=== PATIENT | female | born 1965 | race Caucasian/White ===

== ENCOUNTER 2019-01-31 11:31 | Outpatient (CLI) | payer BC, SELFPAY ==
[2019-01-31 13:39] LABS: TSH (W/Ref FT4) 1.89 uIU/mL (0.358-3.74)
== END 2019-01-31 11:51 ==
PROVIDERS: PCP Neuromusculoskeletal Medicine & OMM; Visit Provider Nurse Practitioner Family
DX: R10.2 Pelvic and perineal pain (principal); N95.0 Postmenopausal bleeding
CPT/HCPCS: 36415; 84443; 87086

== ENCOUNTER 2019-02-14 00:17 | Outpatient (CLI) | payer BC, SELFPAY ==
--- NOTE | 2019-02-14 09:26 | DI.US_ITS ---
SYMPTOMS/DIAGNOSIS: POSTMENOPAUSAL BLEEDING, N95.0 PELVIC ULTRASOUND: Comparison is made with January,. The uterus measures 5.5 x 2.8 x 3.5 cm. No fibroids are seen. The endometrial stripe measures 2 mm in thickness. There is vascular prominence around the uterus and ovaries, which could indicate pelvic congestion syndrome. No ovarian cysts or masses are identified. There is no evidence of free fluid or hydronephrosis. The urinary bladder is unremarkable. IMPRESSION: Prominent pelvic vasculature could indicate pelvic congestion syndrome. The uterus and ovaries are unremarkable.
--- NOTE | 2019-02-14 09:42 | DI.MAMMO_ITS ---
SYMPTOM/DIAGNOSIS: SCREENING, Z12.31 MAMMOGRAMS: Mammograms were interpreted according to the usual protocol including computer analysis with CAD system, tomosynthesis and C view imaging. Comparison is made with exams from [id number]. The breasts are composed of scattered fibroglandular densities, breast density, Category B. No suspicious masses or suspicious microcalcifications are seen. There has been no significant change. IMPRESSION: Category 1, negative mammogram. Yearly screening mammography is recommended. [facility] ASSESSMENT OF FINDINGS: Negative. Category 1. Patient will receive a letter notifying them of these results. BI-RADS category B. There are scattered areas of fibroglandular density.
== END 2019-02-14 00:37 ==
PROVIDERS: PCP Neuromusculoskeletal Medicine & OMM; Visit Provider Nurse Practitioner Family
DX: N95.0 Postmenopausal bleeding (principal); Z12.31 Encounter for screening mammogram for malignant neoplasm of breast
CPT/HCPCS: 77063; 77067; 76830; 76856

== ENCOUNTER 2019-03-13 11:55 | Outpatient (REF) | payer BC, SELFPAY ==
--- NOTE | 2019-03-13 09:30 | ENDOMET_PTH ---
PATIENT: Ha Molina LOC: N U#:[id number] AGE/SX: 53/F ROOM: RE03/13/[address]: ePtey Gutierrez MD : 1965 BED: DIS: 03/13/2019 SPEC #: [id number] RECD: 03/13/19 12:58 STATUS: RONEN REQ #: [id number] CECILE: 03/13/19 09:[address]: Petey Gutierrez DEPT: Surgical Specimen RECD BY: Haily Bhakta ENTERED: 03/13/19 12:58 SP TYPE: Endomet OTHR DR: Jose Rahman Tissues: 1 - ENDOMETRIUM BX/YUSEFETTE Procedures: GROSS AND MICRO LEVEL 4 Comments: [id number]
== END 2019-03-13 12:15 ==
LOC: LBN 11:55
PROVIDERS: PCP Neuromusculoskeletal Medicine & OMM; Visit Provider Obstetrics & Gynecology
DX: N93.8 Other specified abnormal uterine and vaginal bleeding (principal); N85.01 Benign endometrial hyperplasia
CPT/HCPCS: 88305

== ENCOUNTER 2020-02-08 10:56 | Outpatient (REF) | payer BC, SELFPAY ==
--- NOTE | 2020-02-08 10:45 | PAPFT_PTH ---
PATIENT: Ha Molina LOC: [facility] U#:[id number] AGE/SX: 54/F ROOM: RE02/08/[address]: ITALO Andrea : 1965 BED: DIS: 02/08/2020 SPEC #: [id number] RECD: 02/08/20 12:55 STATUS: ENT REQ #: [id number] CECILE: 02/08/20 10:[address]: Karo Manley DEPT: [facility] Cytology RECD BY: Cirilo Noguera ENTERED: 02/08/20 12:55 SP TYPE: PAPFT OTHR DR: Yuliya Gallardo APRN Tissues: 1 - CX/ENDOCX FOR PAP SMEARS Procedures: PAP THIN PREP/UVM Screening HPV DNA PROBE Comments: [id number]
== END 2020-02-08 11:16 ==
LOC: LBN 10:56
PROVIDERS: Visit Provider Nurse Practitioner Family
DX: R82.90 Unspecified abnormal findings in urine (principal); Z12.4 Encounter for screening for malignant neoplasm of cervix; Z11.51 Encounter for screening for human papillomavirus (HPV)
CPT/HCPCS: 88142; 87086; 87624

== ENCOUNTER 2020-09-26 00:30 | Outpatient (CLI) | payer BC, SELFPAY ==
--- NOTE | 2020-09-26 | DI.MAMMO_ITS ---
EXAM: MG MAMMO SCREENING CLINICAL HISTORY: SCREENING,Z12.39 TECHNIQUE: Bilateral full field digital CC and MLO mammographic images were obtained with 3D tomosyn thesis and utilizing computer aided detection (CAD). COMPARISON: Available for comparison. FINDINGS: Masses/Architectural Distortion: None seen. Microcalcifications: No suspicious pleomorphic-type are seen. Skin Thickening/Nipple Retraction: None. IMPRESSION: 1. No significant interval change with no specific features of malignancy noted. 2. Unless there is more urgent need, screening mammography is recommended, as per [employer] guidelines. BI-RADS Category 1 - Negative Breast Density - Category B - Scattered areas of fibroglandular density Breast density category C or D implies that the patient has dense breast tissue. Dense breast tissue is very common and is not abnormal but dense breast tissue can make it harder to find cancer on a ma mmogram. Also, dense breast tissue may increase their breast cancer risk. This information about the result of the mammogram report was provided to the patient to raise their awareness. Use this report when you speak with the patient about their risks for breast cancer, which includes their family hist ory. At that time, you may recommend for more screening tests (Ultrasound or MRI) as they might be us eful based on their risk. A negative radiographic report should not delay biopsy if a dominant or clinically suspicious mass is present. Up to ten percent of cancers are not identified on mammography. A negative report may reinforce clinical impression. Adenosis and dense breasts may obscure an underlying neoplasm. False positive reports average 6 to 10%. Patient will receive a letter notifying them of these results.
--- OUTSIDE RECORDS SUMMARY | 2020-09-26 00:32 | XMS_ITS ---
:1965 Author Care Team Providers Name Role Phone Navigator A Primary Care Provider Unavailable Allergies None recorded. Medications Name Status Start Date Stop Date ? ? magnesium gluconate 12.5 mg magnesium (250 mg) tablet Completed 02/19/2015 05/20/2015 4 Tablet: Daily Problems Name Status Onset Date Source ? Adenomatous Polyp of Colon Active ? Histo ry Allergic Rhinitis Active ? History Osteoporosis Active ? History Bone Density Finding Active ? History Cough Active ? History Abdominal Bloating Active ? History Hemorrhage of Rectum and Anus Active ? Hi story Procedure by Method Active ? History Inflammatory Dermatosis Active ? History Procedures None recorded. Results Lab Results None recorded. Past Encounters 07/05/2019 Administration of Influenza Vaccine Jose Rahman, DO: [address] [place] [address], Ph. Social History None recorded. Vaccine List Vaccine Type influenza, injectable, quadrivalent, pre servative free 07/05/2019 Tdap 12/31/2005 Plan of Care Reminders Provider Appointments None ? ? recorded. Lab None ? ? recorded. Referral None ? ? recorded. Procedures None ? ? recorded. Surgeries None ? ? recorded. Imaging None ? ? recorded. Vitals 01/06/2016 Weight Blood Pressure 68.95 kg 110/64 mm[Hg] 02/07/2014 Height Weight Blood Pressure 160.02 cm 58.06 kg 112/62 mm[Hg]
== END 2020-09-26 00:50 ==
PROVIDERS: Visit Provider Nurse Practitioner Family
DX: Z12.31 Encounter for screening mammogram for malignant neoplasm of breast (principal)
CPT/HCPCS: 77063; 77067

== ENCOUNTER 2022-02-09 00:33 | Outpatient (CLI) | payer OTHER, SELFPAY ==
--- NOTE | 2022-02-09 08:30 | DI.MAMMO_ITS ---
Exam(s) MAMMO SCREENING EXAM: MAMMO SCREENING CLINICAL HISTORY: screening TECHNIQUE: Mammograms were interpreted according to the usual protocol including computer analysis w [employer] CAD system, tomosynthesis and C-view imaging. COMPARISON: No exams were available for comparison FINDINGS: The breasts are composed of scattered fibroglandular densities, Breast Density category B. No suspicious masses or suspicious microcalcifications are seen. No skin thickening or abnormal axillary lymph nodes are seen. There has been no significant change from prior exams. IMPRESSION: BI-RADS Category 1, Negative mammogram Yearly screening mammography is recommended. Breast Density - Category B, scattered fibroglandular densities. A negative radiographic report should not delay biopsy if a dominant or clinically suspicious mass is present. Up to ten percent of cancers are not identified on mammography. A negative report may reinforce clinical impression. Adenosis and dense breasts may obscure an underlying neoplasm. False positive reports average 6 to 10%. Patient will receive a letter notifying them of these results.
== END 2022-02-09 00:53 ==
PROVIDERS: Visit Provider Nurse Practitioner Family
DX: Z12.31 Encounter for screening mammogram for malignant neoplasm of breast (principal)
CPT/HCPCS: 77063; 77067

== ENCOUNTER 2022-08-10 02:45 | Outpatient (CLI) | payer OTHER, SELFPAY ==
[2022-08-10 09:38] LABS: ALT 16 U/L (14-59); AST 19 U/L (15-37); Alkaline Phosphatase 62 U/L (46-116); Anion Gap 7.1 mmol/L (3-11); BUN 12 mg/dL (7-18); Bilirubin, Total 0.3 mg/dL (0.2-1.0); CO2 30.9 mmol/L (21.0-32.0); CREATININE 0.7 mg/dL (0.55-1.02); Calcium 9.6 mg/dL (8.5-10.1); Chloride 104 mmol/L (98-107); Estimated GFR 100.19 (mL/min/1.73m2); Glucose 86 mg/dL (74-106); Potassium 3.8 mmol/L (3.5-5.1); Sodium 142 mmol/L (136-145); Total Protein 7.5 g/dL (6.4-8.2)
== END 2022-08-10 02:46 | disposition home or self-care (01) ==
LOC: LBO 02:47
PROVIDERS: PCP Nurse Practitioner Family; Visit Provider Nurse Practitioner Family
DX: Z00.00 Encounter for general adult medical examination without abnormal findings (principal)
CPT/HCPCS: 36415; 80053

== ENCOUNTER 2022-12-10 14:36 | Emergency (ER) | payer MEDICAID, SELFPAY ==
--- NOTE | 2022-12-10 14:30 | RT.EKG_ITS ---
APPROVED REPORT Exam: Resting ECG Reason for Exam: palpitations Patient Location: E HR:66 bpm ECG Measurements Heart Rate 66 AXIS AZ 154 P 50 QRSd 81 QRS 57 QT 389 T 28 QTc 406 Conclusion Sinus rhythm...normal P axis, V-rate 60- 99 Atrial premature complex...SV complex w/ short R-R interval Consider left ventricular hypertrophy...(S V1+R V5/V6) >3.25mV
[2022-12-10 14:54] VITALS: BP 140/78; PULSE 71; RESP 18; TEMP 36.8; O2SAT 98
--- NOTE | 2022-12-10 15:35 | W.ED.GENAD ---
Discharge Plan Disposition Patient Disposition: Home Condition: Stable Discharge Details Clinical Impression: Palpitations Primary Care Provider: Gold Hernandez ED Provider: Tom Alvarez Home Meds and New Rx's Prescriptions: New metoprolol tartrate 25 mg tablet 25 mg PO DAILY Qty: 30 0RF Continued Rosendo-E 400 mg tablet 400 mg PO DAILY Rx Instructions: administer on an empty stomach CBD Gummie 20 mg PO clobetasol 0.05 % ointment 1 applic topical DAILY 14 Days Qty: 30 1RF Rx Instructions: after two weeks apply tiny amount to vulva twice weekly. cephalexin 500 mg capsule 500 mg PO TID Qty: 15 0RF cholecalciferol (vitamin D3) 125 mcg (5,000 unit) tablet 5,000 unit PO DAILY magnesium 250 mg tablet 250 mg PO DAILY Adult 50 Plus Probiotic 4 billion cell capsule 4,000 mmu cells PO DAILY Rx Instructions: administer with a meal calcium carbonate 600 MG tablet 1,200 mg PO DAILY estradiol 0.01 % (0.1 mg/gram) cream See Rx Instructions .ROUTE .COMPLEX Qty: 42.5 4RF Dose Instruction: USE 1 GRAM VAGINALLY DAILY FOR TWO WEEKS THEN TWICE WEEKLY Rx Instructions: USE 1 GRAM VAGINALLY DAILY FOR TWO WEEKS THEN TWICE WEEKLY Discharge Instructions Instructions: Heart Palpitations (ED) Additional Instructions: your labs did not show concerning findings at this time follow up with your primary care provider within 1 week if you feel more ill, have severe wosening pain or difficulty breathing return to the emergency department Medical Decision Making 57 yo female with no prior cardiac history and no history of smoking comes in with cc of feeling heart beating irregularly since Wednesday. She denies chest pain/pressure, fevers, chills, dyspnea. She states she has had symptoms like this in the past but has attributed it to stress in the past. She arrives hemodynamically stable speaking clearly in no distress. She has clear lungs, no jvd, no leg swelling or tenderness. EKG with pac's otherwise no ischemic findings. Will obtain troponin and is wells low, will send d dimer, no tearing back pain and normal peripheral pulses so doubt dissection. pt stable, labs unremarkable. no concerning tele arrythmias. She does state she used to take metoprolol which she feels helped her symptoms. I discussed with her risks/benefits and she would prefer to have a prescription until she sees her pcp. She is stable for discharge, return precautions given Differential Diagnosis Differential Diagnosis: pac's, nstemi, pe Medical Records Medical records reviewed: Yes I reviewed the patient's medical records. Lab Data Lab results reviewed: Yes I reviewed the patient's lab results. ECG Data Attestation: I personally reviewed and interpreted this ECG (s) as follows: Prior ECG tracings: available for review Interpretation: sinus rhythm, rate of 66, no stemi, pac's HPI General Mode of arrival: ambulatory. Date/Time Provider Initiated Documentation: 12/10/22 14:57. Limitations to Documentation: no limitations. Information obtained by: patient. History of Present Illness 57 year old F presents to the emergency department with the chief complaint of palpitations, described as moderate, and it has been constant. No relieving factors improve symptom(s), No exacerbating factors reported . Patient notes no other symptoms.; denies fever/chills and shortness of breath. Patient did receive the following treatments prior to arrival, none Related Data Home Medications Medication Instructions Recorded Confirmed calcium carbonate 600 mg calcium 1,200 mg PO DAILY 11/20/14 12/10/22 (1,500 mg) tablet cholecalciferol (vitamin D3) 125 5,000 unit PO DAILY 12/17/19 12/10/22 mcg (5,000 unit) tablet lactobacillus combination no.9 4 4,000 mmu cells PO DAILY 09/02/20 12/10/22 billion cell capsule (Adult 50 Plus Probiotic) magnesium 250 mg tablet 250 mg PO DAILY 09/02/20 12/10/22 s-adenosylmethionine 400 mg tablet 400 mg PO DAILY 07/29/21 12/10/22 (Rosendo-E) CBD Gummie 20 mg PO 07/30/21 10/17/22 estradiol 0.01% (0.1 mg/gram) See Rx Instructions .Route 07/31/22 10/17/22 vaginal cream .COMPLEX #42.5 grams cephalexin 500 mg capsule 500 mg PO TID #15 caps 10/07/22 10/17/22 clobetasol 0.05 % topical ointment 1 applic topical DAILY 2 weeks #30 10/07/22 10/17/22 grams metoprolol tartrate 25 mg tablet 25 mg PO DAILY #30 tabs 12/10/22 Previous Rx's Medication Instructions Recorded estradiol 0.01% (0.1 mg/gram) See Rx Instructions .Route 07/31/22 vaginal cream .COMPLEX #42.5 grams cephalexin 500 mg capsule 500 mg PO TID #15 caps 10/07/22 clobetasol 0.05 % topical ointment 1 applic topical DAILY 2 weeks #30 10/07/22 grams metoprolol tartrate 25 mg tablet 25 mg PO DAILY #30 tabs 12/10/22 Allergies Allergy/AdvReac Type Severity Reaction Status Date / Time Sulfa (Sulfonamide Allergy SWEELING Verified 12/10/22 14:53 Antibiotics) BACK OF HEAD gluten AdvReac Intermediate gi symptoms Verified 12/10/22 14:53 General Stated Complaint: Palpitatns JOSE LUIS: 3 Review of Systems All systems reviewed & are unremarkable except as noted in HPI and below Constitutional Constitutional: Denies chills, Denies fever(s) and Denies weakness Eyes Eyes: Denies loss of vision Cardiovascular Cardiovascular: Denies chest pain and Denies dyspnea Respiratory Respiratory: Denies cough and Denies dyspnea Gastrointestinal Gastrointestinal: Denies abdominal pain, Denies nausea and Denies vomiting Musculoskeletal Musculoskeletal: Denies joint swelling Neurologic Neurologic: Denies loss of vision and Denies weakness PFSH All Active Problems (Updated 12/10/22 @ 18:19 by Tom Alvarez MD) Palpitations (Acute) Lichenification (Acute) Vulvar pain (Acute) Superficial foreign body (sliver) (Acute) left palmar aspect base of thumb, untreated cedar sliver, present over 1 year, causing LROM and pain Postprandial abdominal bloating (Chronic) Improved with elimination wheat/gluten 08/2019 Dry skin dermatitis (Chronic) Shoulder arthralgia (Chronic) Osteopenia (Acute 07/06/13) Medical History Annual physical exam Family History Father Hypertension Alcohol abuse stopped 1979 Stroke Depression Mother , age 77 Hypertension Brain cancer Skin cancer Brother Hypertension Alcohol abuse Sister Depression Son No problems noted. Son No problems noted. Maternal Grandfather , age 80 Alcohol abuse Pancreatic cancer Paternal Grandfather , age 55 Emphysema lung Maternal Grandmother , age 95 No problems noted. Paternal Grandmother , age 86 No problems noted. Social History Smoking/Tobacco Use Status: Never Smoking risk assessment performed?: Yes Alcohol Intake: current Alcohol Intake frequency: a few times a month Alcohol type: beer and wine Drug use: Never Counseling given: No Counseling provided: none Caregiver/Support person: No Household members: spouse Housing: house Communication Needs: None Do you need help understanding health information?: Never current occupation: Dental Hygenist Pets and animals: Yes Pets and animals: dog(s) Sexually active: Yes Do you think of yourself as: straight/heterosexual Current gender identity: female What is your relationship status?: How often do you talk on the phone with friends or family?: decline to answer How often do you get together with friends or relatives?: once per week How often do you attend advent or scientology services?: 1-3 times per year Do you belong to any clubs or organized social groups?: no Panel score (0-1 are the most socially isolated patients): 1 What type of physical activity do you participate in: none Frequency: does not exercise Alice/Jehovah'S Witness: None Special alice needs: No Seatbelt use: always Drive intox or ride w/intox waste collection driver: No Do you feel safe at home: Yes Do you feel safe in your relationship?: Yes History History 4 Para 3 Hx # Term Pregnancies Multiple births Hx # Pregnancies Ectopic pregnancies AB induced Hx Number of Living Children AB spontaneous Exam Const General: no acute distress Orientation: alert HENMT Head: normal to inspection Ears: external ears normal General nose exam: external nose normal Mouth: moist mucous membranes Eyes General: appearance normal, both eyes and all related structures Neck Neck: normal visual inspection Resp Effort & Inspection: normal respiratory effort and able to speak in complete sentences Auscultation: clear to auscultation bilaterally Cardio Jugular venous pressure: no JVD Rate: regular rate Heart Sounds: no click and no gallops GI Palpation: soft and nontender Skin General skin exam: no rashes or lesions noted Neuro General: patient alert and patient oriented x3 Extrem General: normal to inspection Psych Mental Status: mental status grossly normal Course Vital Signs Vital signs: Vital Signs Temperature 36.8 C 12/10/22 14:54 Pulse 71 12/10/22 14:54 Respiratory Rate 18 12/10/22 14:54 Blood Pressure 140/78 12/10/22 14:54 Pulse Oximetry 98 12/10/22 14:54 Temperature 36.8 C 12/10/22 14:54 Temperature Source Tympanic 12/10/22 14:54 Pulse 71 12/10/22 14:54 Respiratory Rate 18 12/10/22 14:54 Respiratory Effort Normal, Non-Labored 12/10/22 14:51 Blood Pressure 140/78 12/10/22 14:54 Pulse Oximetry 98 12/10/22 14:54 Oxygen Delivery Method Room Air 12/10/22 14:54 Oxygen Flow Rate 0 12/10/22 14:54 PAWSS Have you Been Recently Intoxicated or Drunk Within the Last 30 days?: No Have you Ever Experienced Previous Episodes of Alcohol Withdrawal?: No Have you ever Experienced Withdrawal Seizures?: No Have you ever Experienced Delirium Tremens(DT)s?: No Have you ever undergone Alcohol Rehabilitation Treatment (i.e, inpt ot outpatient treatment programs)?: No Have you ever Experienced Blackouts?: No Have you ever Combined Alcohol with other Downers within the last 90 days?: No Have you ever Combined Alcohol with any other Substance of Abuse during the last 90 days?: No Positive Blood Alcohol level on Presentation? [PCS.BAL]: No Evidence of Increased Autonomic Activity (i.e. HR>120, tremor, sweating, agitation, nausea)?: No Result: 0
[2022-12-10 15:38] LABS: Abs Immature Grans 0.02 10^3/uL (0.0-0.06); Absolute Basophil Count 0.06 10^3/uL (0.0-0.2); Absolute Eosinophil Count 0.31 10^3/uL (0.0-0.7); Absolute Lymphocyte Count 2.77 10^3/uL (1.2-3.4); Absolute Monocyte Count 0.48 10^3/uL (0.1-0.8); Basophils % 0.7; Eosinophils % 3.5; HCT 45.4 % (36.0-46.0); HGB 14.8 g/dL (11.2-15.7); Immature Grans % 0.2; MCH 28.9 pg (27.0-33.0); MCHC 32.6 % (32.0-36.0); MCV 89 fL (80-95); MPV 11.1 fL (8.0-11.0); Monocytes % 5.4; Neutrophils % 59.2; Platelet Count 287 10^3/uL (130-400); RBC 5.12 10^6/uL (3.93-5.22); RDW 13.7 % (11.7-14.6); RDW-SD 44.8 fL; WBC 8.94 10^3/uL (4.4-10.8)
[2022-12-10 15:53] LABS: Troponin I < 50 ng/L (<or=60)
[2022-12-10 16:29] LABS: D-Dimer 235 ng/mlFEU (<500)
[2022-12-10 18:03] LABS: ALT 21 U/L (14-59); AST 22 U/L (15-37); Albumin 4.5 g/dL (3.4-5.0); Alkaline Phosphatase 54 U/L (46-116); Anion Gap 9.6 mmol/L (3-11); BUN 10 mg/dL (7-18); Bilirubin, Total 0.4 mg/dL (0.2-1.0); CO2 30.4 mmol/L (21.0-32.0); CREATININE 0.8 mg/dL (0.55-1.02); Calcium 9.7 mg/dL (8.5-10.1); Chloride 104 mmol/L (98-107); Estimated GFR 84.82 (mL/min/1.73m2); Glucose 78 mg/dL (74-106); Lipase 33 U/L (16-77); Magnesium 2.3 mg/dL (1.8-2.4); Potassium 4.1 mmol/L (3.5-5.1); Sodium 144 mmol/L (136-145); Total Protein 7.7 g/dL (6.4-8.2)
[2022-12-10 18:30] VITALS: BP 137/84; PULSE 81; RESP 18; O2SAT 97
[2022-12-10 18:57] LABS: TSH (W/Ref FT4) 1.97 uIU/mL (0.36-3.74)
== END 2022-12-10 18:30 | disposition home or self-care (01) ==
PROVIDERS: Emergency Provider Emergency Medicine; PCP Nurse Practitioner Family
DX: R00.2 Palpitations (principal)
CPT/HCPCS: 80053; 83690; 93005; 99283; 83735; 84443; 84484; 85025; 85379; 93010; 99284

== ENCOUNTER 2023-02-11 12:47 | Outpatient (RCR) | payer MEDICAID, SELFPAY ==
--- NOTE | 2023-02-11 12:45 | HOLTER_ITS ---
APPROVED REPORT Conclusion This is a 48-hour Holter monitor ordered for palpitations Rhythm throughout was sinus with an average heart rate of 73. Minimum was 55, maximum 108 There were very rare isolated premature ventricular contractions There were very rare isolated atrial premature beats. There was one 4 beat self-limited atrial run There was no atrial fibrillation no high-grade AV block, no pauses greater than 3 seconds Patient symptoms were reported but had no correlation with any dysrhythmia
== END 2023-03-03 23:59 | disposition home or self-care (01) ==
LOC: CARDOPNVT 12:47
PROVIDERS: PCP Nurse Practitioner Family; Visit Provider Nurse Practitioner Family
DX: R00.2 Palpitations (principal)
CPT/HCPCS: 93225; 93226

== ENCOUNTER 2023-03-05 08:38 | Outpatient (CLI) | payer MEDICAID, SELFPAY ==
--- NOTE | 2023-03-05 08:30 | RT.EKG_ITS ---
APPROVED REPORT Exam: Resting ECG Reason for Exam: palpitations Patient Location: O HR:60 bpm ECG Measurements Heart Rate 60 AXIS MT 159 P 13 QRSd 97 QRS 46 QT 376 T 34 QTc 376 Conclusion Sinus rhythm...normal P axis, V-rate 50- 99 Normal Electrocardiogram
== END 2023-03-05 08:39 | disposition home or self-care (01) ==
LOC: DI.CARD 08:39
PROVIDERS: PCP Nurse Practitioner Family; Visit Provider Internal Medicine Cardiovascular Disease
DX: R00.2 Palpitations (principal)
CPT/HCPCS: 93010

== ENCOUNTER → 2023-06-14 16:26 | Outpatient (CLI) | payer BC, SELFPAY ==
--- NOTE | 2023-06-14 12:22 | DI.RAD_ITS ---
Exam(s) XR SHOULDER LT COMPLETE 2+V EXAM: XR SHOULDER LT COMPLETE 2+V CLINICAL HISTORY: left shoulder pain M25.512. TECHNIQUE: 2D digital imaging was performed. Five views. COMPARISON: No exams were available for comparison FINDINGS: BONES: No acute fracture is present. No bony destructive lesion is seen. Mild spurring at the acromi on JOINTS: No dislocation present. No significant degenerative changes at the AC joint or glenohumeral joint. SOFT TISSUE: Normal. IMPRESSION: Minimal degenerative changes. DATA REPOSITORY: RADIATION DOSE DELIVERED:
== END ==
PROVIDERS: PCP Nurse Practitioner Family; Visit Provider Nurse Practitioner Family
DX: M19.012 Primary osteoarthritis, left shoulder (principal)
CPT/HCPCS: 73030

== ENCOUNTER → 2023-06-28 01:24 | Outpatient (CLI) | payer BC, SELFPAY ==
--- NOTE | 2023-06-28 | DI.US_ITS ---
Exam(s) US BREAST LT COMPLETE MG MAMMO DIAGNOSTIC BI EXAM: MG MAMMO DIAGNOSTIC BI AND COMPLETE LEFT BREAST ULTRASOUND CLINICAL HISTORY: left breast pain,Z12.39. TECHNIQUE: BILATERAL CC AND MLO mammographic images were obtained with 3D tomosynthesis technique an d utilizing computer aided detection (CAD). COMPLETE LEFT BREAST ULTRASOUND was performed, including all 4 quadrants, the retroareolar region and the left axilla. COMPARISON: Prior mammograms were reviewed, the most recent being February 2022. FINDINGS: DIAGNOSTIC MAMMOGRAM: There has been no significant change in the appearance and distribution of the fibroglandular tissue. There are no new spiculated masses nor malignant-appearing microcalcification groups in either breast . There is no new architectural distortion or skin thickening-retraction. COMPLETE LEFT BREAST ULTRASOUND: There is no evidence of solid or significant cystic lesions in all 4 quadrants. Scanning of the left axilla is negative for significant adenopathy. IMPRESSION: 1. No radiographic evidence of malignancy in either breast. 2. Negative complete left breast ultrasound The patient was informed of the findings prior to leaving the department today. BI-RADS Category 2 - Benign Findings Breast Density - Category B - Scattered areas of fibroglandular density Breast density Category C or D implies that the patient has dense breast tissue. Dense breast tissue can make it harder to find cancer on a mammogram. Dense breast tissue is also associated with an incr eased risk of breast cancer. This information about the result of the mammogram report was provided to the patient to raise their awareness. Use this report when you speak with the patient about their risks for breast cancer, which includes their family history. At that time, you may recommend additional screening tests (Ultrasoun d or MRI) as these tests may add significant information. A negative radiographic report should not delay biopsy if a dominant or clinically suspicious mass is present. Up to ten percent of cancers are not identified on mammography. A negative report may reinforce clinical impression. Adenosis and dense breasts may obscure an underlying neoplasm. False positive reports average 6 to 10%. Patient will receive a letter notifying them of these results.
== END ==
PROVIDERS: PCP Nurse Practitioner Family; Visit Provider Nurse Practitioner Family
DX: N64.4 Mastodynia (principal); Z12.31 Encounter for screening mammogram for malignant neoplasm of breast
CPT/HCPCS: 76642; 77062; 77066; G0279

== ENCOUNTER 2024-09-26 08:38 | Outpatient (CLI) | payer BC, SELFPAY ==
[2024-09-26 12:51] LABS: TSH (W/Ref FT4) 2.06 uIU/mL (0.36-3.74)
[2024-09-27 08:41] LABS: Hepatitis C Ab w Rflx HCV PCR Negative (Negative)
== END 2024-09-26 08:39 | disposition home or self-care (01) ==
LOC: LOS 08:39
PROVIDERS: PCP Nurse Practitioner Family; Referring Provider Nurse Practitioner Family; Visit Provider Nurse Practitioner Family
DX: Z11.59 Encounter for screening for other viral diseases (principal); Z00.00 Encounter for general adult medical examination without abnormal findings
CPT/HCPCS: 36415; 86803; 84443

== ENCOUNTER 2024-10-18 16:28 | Outpatient (REF) | payer BC, SELFPAY ==
--- NOTE | 2024-10-18 15:10 | PAPFT_PTH ---
PATIENT: Ha Molina LOC: [facility] U#:[id number] AGE/SX: 58/F ROOM: RE10/18/[address]: Cheri Sood DO : 1965 BED: DIS: 10/18/2024 SPEC #: [id number] RECD: 10/18/24 18:05 STATUS: RONEN REQ #: [id number] CECILE: 10/18/24 15:[address]: Cheri Sood DEPT: [facility] Cytology RECD BY: Haily Bhakta ENTERED: 10/18/24 18:06 SP TYPE: PAPFT OTHR DR: Gold Mendoza DNP Tissues: 1 - CX/ENDOCX FOR PAP SMEARS Procedures: PAP THIN PREP/UVM Screening HPV DNA PROBE Comments: [id number] (HPV 16 & 18/45)
== END 2024-10-18 16:29 | disposition home or self-care (01) ==
LOC: LBN 16:28
PROVIDERS: PCP Nurse Practitioner Family; Visit Provider Obstetrics & Gynecology
DX: Z11.51 Encounter for screening for human papillomavirus (HPV) (principal); Z01.419 Encounter for gynecological examination (general) (routine) without abnormal findings
CPT/HCPCS: 88142; 87624

== ENCOUNTER 2024-11-08 00:07 | Outpatient (CLI) | payer BC, SELFPAY ==
--- NOTE | 2024-11-08 08:45 | DI.MAMMO_ITS ---
Exam(s) MAMMO SCREENING EXAM: MAMMO SCREENING CLINICAL HISTORY: screening TECHNIQUE: Mammograms were interpreted according to the usual protocol including computer analysis w [employer] CAD system, tomosynthesis and C-view imaging. COMPARISON: 2014 through 2022 FINDINGS: The breasts are composed of scattered fibroglandular densities, Breast Density category B. No suspicious masses or suspicious microcalcifications are seen. No skin thickening or abnormal axillary lymph nodes are seen. There has been no significant change from prior exams. IMPRESSION: BI-RADS Category 1, Negative mammogram Yearly screening mammography is recommended. Breast Density - Category B, scattered fibroglandular densities. A negative radiographic report should not delay biopsy if a dominant or clinically suspicious mass is present. Up to ten percent of cancers are not identified on mammography. A negative report may reinforce clinical impression. Adenosis and dense breasts may obscure an underlying neoplasm. False positive reports average 6 to 10%. Patient will receive a letter notifying them of these results.
== END 2024-11-08 00:27 ==
LOC: DI 00:07
PROVIDERS: PCP Nurse Practitioner Family; Visit Provider Obstetrics & Gynecology
DX: Z12.31 Encounter for screening mammogram for malignant neoplasm of breast (principal); R92.323 Mammographic fibroglandular density, bilateral breasts
CPT/HCPCS: 77063; 77067

== ENCOUNTER 2025-05-08 13:53 | Outpatient (CLI) | payer BC, SELFPAY ==
--- NOTE | 2025-05-08 14:05 | DI.RAD_ITS ---
Exam(s) XR CERVICAL SPINE COMP 4-5V EXAM: XR CERVICAL SPINE COMP 4-5V CLINICAL HISTORY: M54.12 Radiculopathy, cervical regiona, no improvement with PT. TECHNIQUE: 2D digital imaging was performed. COMPARISON: No exams were available for comparison FINDINGS: Five views No evidence of fracture, listhesis, nor offset of the spinal laminar line. All disc spaces exhibit normal height. There are no cervical ribs. There arm mild degenerative changes in the facet joints at the C4-5 level. The cervical curvature is maintained. Bone density is normal. No osseous lesions. IMPRESSION: Age-appropriate findings. No significant radiographic findings in the cervical spine. Mild degenerative facet arthropathy noted at C4-5 level. DATA REPOSITORY: RADIATION DOSE DELIVERED:
== END 2025-05-08 14:13 ==
LOC: DI 13:54
PROVIDERS: PCP Nurse Practitioner Family; Visit Provider Nurse Practitioner Family
DX: M54.12 Radiculopathy, cervical region (principal)
CPT/HCPCS: 72050

== ENCOUNTER 2025-05-29 15:11 | Outpatient (CLI) | payer BC, SELFPAY ==
--- NOTE | 2025-05-29 07:31 | DI.MRI_ITS ---
Exam(s) MR CERVICAL SPINE WO EXAM: MR CERVICAL SPINE WO CLINICAL HISTORY: no improvement with PT,cervical radicular pain,m54.12 TECHNIQUE: Multiplanar multisequence MRI of the cervical spine was performed without intravenous contrast. COMPARISON: CR XR CERVICAL SPINE COMP 4-5V from 05/08/2025 FINDINGS: CERVICOMEDULLARY JUNCTION: Intact with no evidence of cerebellar tonsillar ectopia. No obvious abnormality of the odontoid process. No evidence of Chiari 1 malformation. There is normal cervical spine curvature evident. CERVICAL SPINAL CORD: There is no abnormal signal in the cervical spinal cord and no evidence of focal cord atrophy nor focal cord swelling. OSSEOUS:There are no cervical fractures evident. No significant osseous lesions in the cervical vertebrae. On the sagittal images there is Schmorl's node invagination in the inferior plate T3 incidentally noted. There is no associated bone edema which would suggest that this is an acute or subacute event INDIVIDUAL LEVELS: C2-3: No disc herniation nor central canal stenosis. No foraminal stenosis. No facet arthropathy. C3-4: No disc herniation nor central canal stenosis.There is unilateral left- sided facet arthropathy. Bilateral small Luschka joint osteophytes noted. There is mild left-sided foraminal stenosis. Right facet joint appears unremarkable. No foraminal stenosis on the right side. Mild foraminal stenosis on the left side. C4-5: No disc herniation nor central canal stenosis.Right facet joint unremarkable. Mild degenerative changes in the left facet joint. There is mild left-sided foraminal stenosis. No significant foraminal stenosis on the right side. C5-6: Normal disc height and signal. No disc herniation or central canal stenosis. Facet joints appear unremarkable bilaterally. Mild right-sided foraminal stenosis. No left-sided foraminal stenosis. C6-7: Normal disc height and signal. No disc herniation or central canal stenosis. No significant facet arthropathy on either side. No significant foraminal stenosis at this level. C7-T1: No disc herniation nor central canal stenosis. No facet arthropathy.No foraminal stenosis. IMPRESSION: 1. Only mild findings as described above. There is no significant focal disc herniation. No central spinal canal stenosis 2. There is some facet arthropathy evident on the left side at C3-4 level as well as small bilateral Luschka joint osteophytes. Mild bilateral foraminal stenosis. No central canal stenosis. 3. Other findings as above. DATA REPOSITORY:
== END 2025-05-29 15:31 ==
LOC: DI 15:11
PROVIDERS: PCP Nurse Practitioner Family; Visit Provider Nurse Practitioner Family
DX: M54.12 Radiculopathy, cervical region (principal)
CPT/HCPCS: 72141